=== PATIENT | female | born 1955 | race Hispanic/Latino ===

== ENCOUNTER 2020-02-27 17:07 | Emergency (ER) | payer SELFPAY ==
--- NOTE | 2020-02-27 17:24 | ED.PDOC ---
History of Present Illness - General Chief Complaint: Eye Problems Stated Complaint: Bilateral eye irritation/discharge Time Seen by Provider: 02/27/20 17:18 Source: patient Exam Limitations: no limitations - History of Present Illness Timing/Duration: gradual Severity: moderate EENT Location: eye (R), eye (L) Improving Factors: nothing Worsening Factors: nothing Associated Symptoms: denies symptoms Allergies/Adverse Reactions: Allergies Penicillins Allergy (Verified 02/27/20 17:27) Home Medications: Ambulatory Orders NK 02/27/20 Review of Systems - Review of Systems Constitutional: States: see HPI. Denies: chills, fever EENTM: States: eye pain. Denies: ear pain, ear discharge, nose congestion Respiratory: Denies: cough, short of breath, stridor Cardiology: States: edema. Denies: palpitations, syncope Gastrointestinal/Abdominal: Denies: abdominal pain, diarrhea, nausea Genitourinary: Denies: discharge, dysuria, frequency Musculoskeletal: Denies: back pain, muscle pain All other Systems: Reviewed and Negative Family Medical History - Family History Mother Family History: No Known Physical Exam - Physical Exam General Appearance: Alert, Comfortable Eye Exam: bilateral normal, bilateral other - conjunctivitis Ear Exam: bilateral ear: auricle normal, canal normal Nasal Exam: normal inspection Throat Exam: normal mouth inspection, pharynx normal Neck: non-tender, full range of motion, supple Cardiovascular/Respiratory: regular rate, rhythm, no M/R/G, normal peripheral pulses Abdominal Exam: non-tender, no organomegaly 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 States she has had symptoms for 7 days.Has not been put on any eye drops. States that she saw her wound care physician about 2 weeks ago for her glaucoma.Denies any vision changes Departure - Departure Clinical Impression: Conjunctivitis, Acute eye pain Disposition: Discharge to Home or Self Care Condition: Fair Departure Forms: ED Discharge - Pt. Copy, Patient Portal Self Enrollment Instructions: DI for Eye Pain, Conjunctivitis ([place]) Activity: other - as tolerated Referrals: Bailey Perez, [Non-Staff] - 1-2 Weeks Home Medications: Ambulatory Orders NK 02/27/20 Additional Instructions: Please ensure to follow-up with your primary care physician in 1 to 2 days. Please ensure to use all the Make antibiotics prescribed today. Return to emergency mediately immediately if you develop any trouble with your vision OR You have any other concerns
[2020-02-27 17:27] VITALS: O2SAT 99
[2020-02-27] MEDS ORDERED: ERYTHROMYCIN OPHTH OINT 1 APPLIC BOTH_EYES ONE (17:29)
[2020-02-27 17:51] VITALS: BP 161/93; TEMP 98.3
== END 2020-02-27 17:52 | disposition home or self-care (01) ==
LOC: ER 17:07
DX: H10.9 Unspecified conjunctivitis (principal); H57.13 Ocular pain, bilateral; Z88.0 Allergy status to penicillin